=== PATIENT | male | born 1965 | race Caucasian/White ===

== ENCOUNTER → 2017-08-23 | Outpatient (CLI) | payer OTHER ==
[~2017-08-23] MED LIST: CEFDINIR300 MG PO; CEFTIN 250 MG250 MG GT; CELEBREX 200 M200 M1 PO; CELEBREX 200 M200 MG PO; LEVAQUIN 500 M500 M3 PO; LYRICA 50 MG50 MG PO; PRILOSEC 20 MG20 MG PO; RELAFEN750 MG PO; TRAMADOL 50 MG50 MG PO
== END ==
LOC: ULTRA 07:30
DX: K76.0 Fatty (change of) liver, not elsewhere classified (principal); R10.11 Right upper quadrant pain

== ENCOUNTER → 2017-12-31 | Outpatient (CLI) | payer OTHER | LOC: NUC 07:16 | DX: R10.11 Right upper quadrant pain (principal) ==

== ENCOUNTER 2019-09-07 13:28 | Inpatient (IN) | payer OTHER ==
[~2019-09-07] VITALS: Ht 180.3 cm; Wt 111.6 kg
[2019-09-07 13:35] VITALS: BP 133/85
[2019-09-07 14:08] LABS: ABSOLUTE NEUTROPHILS 4.2 thou/uL (1.4-8.2); BASOPHILS 0.3 % (0.0-2.0); HEMOGLOBIN 18.3 gm/dL (14.0-18.0); LYMPHOCYTES 26.7 % (24.0-44.0); MCHC 33.9 g/dL (28.0-37.0); MCV 91.5 fL (80.0-100.0); MONOCYTES 9.5 % (1.0-8.0); PLATELET COUNT 225 thou/uL (150-400); POLYS 62.5 % (36.0-66.0); RDW 13.2 % (10.5-14.5); WBC 6.7 thou/uL (4.0-11.0)
[2019-09-07 14:12] LABS: ANION GAP 7 mmol/L (7-16); BUN 17 mg/dL (7-18); CALCIUM 9.4 mg/dL (8.5-10.1); CHLORIDE 103 mmol/L (98-107); CO2 29 mmol/L (21-32); CREATININE 0.9 mg/dL (0.7-1.3); GLUCOSE 96 mg/dL (74-106); POTASSIUM 3.6 mmol/L (3.5-5.1); SODIUM 139 mmol/L (136-145)
[2019-09-07 14:23] LABS: MAGNESIUM 2.1 mg/dL (1.8-2.4); SGOT 20 U/L (15-37); SGPT 50 U/L (30-65); TOTAL BILIRUBIN 0.4 mg/dL (<0.1-1.0); TOTAL PROTEIN 7.4 g/dL (6.4-8.2); TROPONIN-I <0.06 ng/mL (<0.06)
[2019-09-07 16:24] VITALS: BP 131/84
[2019-09-07 16:35] VITALS: BP 132/96
--- NOTE | 2019-09-07 17:31 | NUR ---
ADMITTED PATIENT TO AT APPROX 1630. PATIENT ADMISSION COMPLETE, COMPLAINTS OF HEADACHE (RATED AT 4) AND DIZINESS. PATIENT REFUSED PAIN MEDICATION AND SAID SYMPTOMS WERE MOSTLY HIS DIZINESS. VITALS STABLE. ENT CONSULTATION CALLED IN. AWAITING ENT FOR FURTHER POC.
[2019-09-07] MEDS ORDERED: METHYLPREDNISOL32 MG PO (18:10)
[2019-09-07] MEDS ORDERED: AUGMENTIN 500-1 EACH PO (18:11)
[2019-09-07] MEDS ORDERED: MECLIZINE HCL25 M1 PO (18:14)
[2019-09-07] MEDS ORDERED: DIAZEPAM 10 MG10 M1 PO (18:16)
[2019-09-07 19:33] VITALS: BP 150/105
[2019-09-07 20:13] VITALS: BP 139/101
[2019-09-07 23:05] VITALS: BP 134/86
[2019-09-08 03:46] VITALS: BP 124/80
--- NOTE | 2019-09-08 04:06 | NUR ---
ASSUMED PT CARE AT 1900. PT A&0X4, VSS EXCEPT BP WHICH WAS SLIGHTLY ELEVATED AT 150/105. PT ALSO COMPLAINED ABOUT HEADACHE, DR BOLTON NOTIFIED OF HEADACHE AND OF ELEVATED BP. REGULAR STRENGHT TYLENOL AND 50MG OF METOPROLOL SUCCs Rx. MEDS ADMINISTERED AND BP CAME DOWN TO 124/80 THIS AM. PT IS STABLE, NO COPLAINTS OF N/V. PT RESTED WELL ALL NIGHT, GOOD URINE OUTPUT, WILL CONTINUE TO MONITOR PER POC.
--- NOTE | 2019-09-08 07:59 | EKG ---
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 : 1965 Requested By: Go Alexandre Order Number: [id number] MD: Shubham Gomez Measurements Intervals [place] Rate: 66 P: 28 FL: 180 QRS: 9 QRSD: 91 T: 16 QT: 375 QTc: 393 Interpretive Statements Sinus rhythm No significant abnormality Compared to ECG 04/29/2009 21:07:52 Atrial premature complex(es) no longer present Electronically Signed On 09-08-2019 7:59:25 CDT by Shubham Gomze [email or web address] <ELECTRONICALLY SIGNED> By: Shubham Gomez MD, [facility] 09/08/19 0759 33 33 Shubham Gomez MD, FAC /EPI
[2019-09-08 08:07] VITALS: BP 133/89
--- NOTE | 2019-09-08 10:27 | NUR ---
ASSESSMENT: CM REVIEWED CHART AND MET WITH PATIENT AT THE BEDSIDE. PT WAS ADMITTED FOR VERTIGO. PT REPORTS LIVING IN A HOUSE WITH HIS . PT REPORTS ONE STEP TO ENTER AND NO STEPS HE HAS TO USE ONCE INSIDE. PT REPORTS BEING FULLY INDEPENDENT WITH ADLS AND AMBULATION. PT DENIES HAVING ANY DME OR THE NEED FOR IT. PT HAS NOT HAD HH IN THE PAST NOR BEEN TO SNF. PT REPORTS HE WILL HAVE NO NEEDS FROM CM PRIOR TO DISCHARGE. CM WILL CONTINUE TO FOLLOW TO ASSIST NEEDED.
[2019-09-08 16:36] VITALS: BP 130/85
[2019-09-08] MEDS ORDERED: METOPROLOL SUCC50 MG PO (18:50)
[2019-09-08 19:33] VITALS: BP 130/85
--- NOTE | 2019-09-08 20:10 | NUR ---
RN receved order to D/C PT to home, pt's vs are stable , RN has giving d/c teaching ,including fall pervention, and medications, pt and family understand well , pt 's stays with pt , and she will cloth picker pt to go home soon.
== END 2019-09-08 21:30 | disposition home or self-care (01) | DRG 156 ==
LOC: ER 13:28 → 3W 15:56 → EROBS 15:56 → 3W 16:26
PROVIDERS: Emergency Medicine; ADMIT Family Medicine
DX: H93.3X9 Disorders of unspecified acoustic nerve (principal); Z90.49 Acquired absence of other specified parts of digestive tract; Z88.0 Allergy status to penicillin
CPT/HCPCS: 10879

== ENCOUNTER → 2020-02-09 | Outpatient (CLI) | payer OTHER ==
[~2020-02-09] MED LIST changes: +AUGMENTIN 500-1 EACH PO; +DIAZEPAM 10 MG10 M1 PO; +MECLIZINE HCL25 M1 PO; +METHYLPREDNISOL32 MG PO; +METOPROLOL SUCC50 MG PO
== END ==
LOC: ULTRA 07:36
DX: K76.0 Fatty (change of) liver, not elsewhere classified (principal)

== ENCOUNTER → 2020-11-05 | Outpatient (CLI) | payer OTHER ==
[~2020-11-05] VITALS: Ht 177.8 cm; Wt 111.1 kg
[2020-11-05 13:57] VITALS: BP 138/89
--- NOTE | 2020-11-06 12:34 | HPC ---
[facility] [address] [place] [address] PAIN MANAGEMENT CONSULTATION Name: ANILA HORN Room #: REG [facility]..#: [id number] Admission: 11/05/20 Attend Phys: Bora Anand DO Discharge: Date of : 69 Report #: [id number] THIS REPORT FOR: cc: Perry Aguilar MD, Neal A. MD Johnson, James E. DO ~ DATE OF SERVICE: 11/05/2020 CHIEF COMPLAINT: Neck pain. HISTORY OF PRESENT ILLNESS: As you know, the patient is a pleasant 55-year-old male who has been referred to our service by Neurosurgery to undergo bilateral C4-C5 intraarticular facet injections. The patient is being evaluated from a surgical standpoint and they wish to determine whether or not his symptoms are related to the C4-C5 level, which is just above his previous fusion. He was complaining of increasing neck pain and they referred the patient to our clinic to undergo this procedure to determine if his symptoms would improve. The patient reports today his pain is steady. He describes the pain as burning, shooting, and sharp. He places current pain score 7/10, daily average is 7/10, worst pain has been is 8/10. The patient states the pain is exacerbated with "just moving." Pain is improved with nothing to date. He has been referred to our service by his neurosurgery team to undergo bilateral C4-C5 intra-articular facet injections of the cervical spine. PAST MEDICAL HISTORY: 1. Bravo esophagus. 2. Gastroesophageal reflux disease. 3. History of vertigo. 4. History of lumbar radiculopathy. PAST SURGICAL HISTORY: 1. Lumbar laminectomy. 2. ACDF, 2009. 3. ACDF, 2012. SOCIAL HISTORY: The patient denies tobacco, IV or illicit drug use. Admits to approximately 1 alcohol beverage per day. He is retired, retired about 1 year ago. He reports he is not receiving workmen's compensation, but is receiving disability benefits. He is not in litigation in regards to pain. He is unaccompanied at today's visit. REVIEW OF SYSTEMS: Positive for wearing corrective eyewear, frequent and recurrent headaches, lightheadedness and dizziness, numbness and tingling sensations, chronic neck pain, fatigue and weakness. All other review of [address] [address] PAIN MANAGEMENT CONSULTATION Name: ANILA HORN ALAN Room #: REG [facility]..#: [id number] Admission: 11/05/20 Attend Phys: Bora Anand DO Discharge: Date of : 69 Report #: [id number] systems negative per 12-point review of systems other than those listed in history of present illness. Pain impact score 38/70, moderate interference of daily activities secondary to pain. ALLERGIES: PENICILLIN. CURRENT MEDICATIONS: Tramadol 50 mg every 6 hours p.r.n. pain, omeprazole 20 mg twice a day. IMAGING: No imaging available. PHYSICAL EXAMINATION: VITAL SIGNS: Blood pressure 138/89, pulse 79, respiratory rate 18 and unlabored. The patient is 97% on room air. Height 5 feet 10 inches tall, weight 245 pounds, BMI calculated 35.2. GENERAL: Well-developed, well-nourished, well-hydrated 55-year-old male appearing stated age. He is awake, alert and oriented x 3. Current pain score is rated at around 7-8/10. HEENT: Normocephalic, atraumatic. Pupils equal, round and reactive. NEUROLOGIC: Speech is fluent. The patient deemed a good historian. LUNGS: Clear, no wheeze, rhonchi or rales. CARDIOVASCULAR: Regular. No appreciable gallop, no rub. ABDOMEN: Soft, nontender. EXTREMITIES: Show no clubbing, no cyanosis, no edema. MUSCULOSKELETAL: Upper extremity strength appears equal and symmetrical 5/5. Deep tendon reflexes 2+/4, biceps, brachialis and triceps. Muscle bulk and tone equal and symmetrical in upper extremities. Spurling's test is negative. Cervical provocation testing is met with increasing pain with restriction of motion noted to be decreased by about 25%. There is palpatory tenderness over the paraspinal musculature of the cervical spine. No spinous process tenderness. ASSESSMENT: 1. Cervical spondylosis without current radiculopathy. 2. Chronic cervicalgia. 3. Chronic intractable pain. PLAN: 1. The patient has been referred to our service by his neurosurgery team to discuss the possibility of undergoing bilateral C4-C5 intraarticular facet injections. There is some question about whether or not the patient's symptoms are related to facet arthropathy at the level above his fusion or whether he is experiencing atypical cervical radiculopathy and may need a more extensive surgical approach. The patient was sent to our clinic to trial the bilateral [facility] [address] [place] [address] PAIN MANAGEMENT CONSULTATION Name: ANILA HORN Room #: REG [facility]#: [id number] Admission: 11/05/20 Attend Phys: Bora Anand, Discharge: Date of : 69 Report #: [id number] C4-C5 injections to determine first well whether or not his symptoms are improved and secondly whether or not we can see long-term benefit with injections in the area. The patient has trialled conservative treatment options undergoing physical therapy with mobility techniques. He has also undergone medication management, but has not noted much in the way of improvement in symptoms. He was subsequently referred to undergo the C4-C5 bilateral facet injections to determine if his symptoms will show improvement with that type of procedure. We have discussed this with the patient today. We also discussed with the patient, the other treatment options we have available including physical therapy, stretching exercises, traction techniques. We discussed suggestions of treatment with medication management. We also discussed the surgical options that may ultimately be necessary based on the efficacy of the injections provided. After this long discussion, the patient chose to move forward with the C4-C5 intraarticular facet injections. 2. The patient was made an appointment tomorrow, 11/06/2020 to undergo the bilateral facet injections. We will need to obtain a preauthorization for the patient to undergo the procedure as well as the patient needs to clear his schedule, so that he can go home and relax after the procedure. We were able to make an appointment tomorrow to undergo the injection in hopes of improving pain. 3. No medication changes made at today's visit. The patient will continue current medical therapy as prior prescribed. 4. We will see the patient back in followup visit to undergo bilateral C4-C5 intra-articular facet injections of the cervical spine to address questions proposed by Neurosurgery whether or not an improvement in symptoms will be noted with these type of procedures. We wish to thank nurse practitioner, Mariah Johansen, for the opportunity to see this patient in consultation. We will keep you apprised of his response to treatment as we address the requested C4-C5 intraarticular facet injections. We will keep you apprised of his response to this injection and any other treatments recommended. Again, we wish to thank you for the opportunity to see the patient in consultation. <ELECTRONICALLY SIGNED> By: Bora Anand DO 11/06/20 1234 1652 0025 Bora Anand DO /nt
== END ==
LOC: PAIN 06:52
PROVIDERS: ATTEND Anesthesiology Pain Medicine
DX: M47.816 Spondylosis without myelopathy or radiculopathy, lumbar region (principal); G89.4 Chronic pain syndrome; K22.70 Barrett's esophagus without dysplasia; K21.9 Gastro-esophageal reflux disease without esophagitis; Z79.891 Long term (current) use of opiate analgesic; Z79.899 Other long term (current) drug therapy; Z88.0 Allergy status to penicillin

== ENCOUNTER → 2020-11-06 | Outpatient (CLI) | payer OTHER ==
[~2020-11-06] VITALS: Ht 177.8 cm; Wt 111.1 kg
[2020-11-06 08:46] VITALS: BP 128/95
[2020-11-06 14:48] VITALS: BP 144/97
[2020-11-06 14:49] VITALS: BP 144/97
--- NOTE | 2020-11-06 15:30 | NUR ---
Pain Clinic Assessment: 1. History of Osteoarthritis: Left Upper Extremity Right Upper Extremity History of Rheumatoid Arthritis: Not Applicable 2. Height: 5 ft. 10 in. 177.8 cm. Weight: 245.0 lb. oz. 111.132 kg. Patient's BMI: 35.2 3. Vital Signs: BP: 144/97 Pulse: 84 Resp: 16 Temp: 02 Sat: 98 ECG Mon: 4. Pain Intensity: 7 5. Fall Risk: Dizziness: N Needs help standing or walking: N Fallen in the last 3 months: N Fall risk comments: 6. Patient on Blood Thinner: None 7. History of Hypertension: N 8. Opioid Therapy greater than 6 weeks: N Opiate Contract Signed: 9. Risk Assessment Tool Provided: LOW 10. Functional Assessment Tool: 11. Recreational Drug Use: Never Drug Type: Tobacco Use: Former Smoker Tobacco Type: Amount or Packs/day: How Many Years: Alcohol Use: Yes Frequency: Quant:
--- NOTE | 2020-11-07 07:29 | HPC ---
[address] [place] [address] PAIN MANAGEMENT CONSULTATION Name: ANILA HORN Room #: REG [facility].#: [id number] Admission: 11/06/20 Attend Phys: Bora Anand DO Discharge: Date of : 69 Report #: [id number] THIS REPORT FOR: cc: Perry Aguilar MD, Neal A. MD Johnson, James E. DO ~ DATE OF SERVICE: 11/06/2020 REFERRING PHYSICIAN: BRANDON Nicole CHIEF COMPLAINT: Neck pain. HISTORY OF PRESENT ILLNESS: As you know, the patient is a very pleasant 55-year-old male referred to our service by his neurosurgery team to undergo bilateral C4-C5 intraarticular facet injections under fluoroscopic guidance. The patient was seen in consultation yesterday 11/05/2020 to be assessed for the bilateral C4-C5 intraarticular facet injections. We were able to establish today's appointment for the patient to undergo bilateral C4-C5 intraarticular facet injections. We received authorization for the patient to undergo the procedure today. He returns in followup visit stating a pain level of about 7/10, exacerbated with extension, rotation, lateral flexion. He returns for bilateral C4-C5 intra-articular facet injections per the request of the Neurosurgery team. ALLERGIES: PENICILLIN. CURRENT MEDICATIONS: Tramadol, omeprazole. SOCIAL HISTORY: The patient denies tobacco, IV or illicit drug use. Admits to approximately 1 alcohol beverage per day. He is retired, retired about 1 year ago, unaccompanied at today's visit. IMAGING: No new imaging available. PQRS: The patient has known arthritic changes of the cervical spine, bilateral shoulders, bilateral elbows and wrists. No rheumatoid arthritis. He is placing current pain score 7/10. He is not a fall risk, has not had a fall in last 3 months. He is not on blood thinners, nor is he treated for hypertension. He is not on chronic opioids and has a low opiate addiction potential. Pain impact score is 38/70, moderate interference of daily activities secondary to pain. PHYSICAL EXAMINATION: VITAL SIGNS: Blood pressure 144/97, pulse 84, respiratory rate 16 and unlabored. The patient is 98% on room air. Height 5 feet 10 inches tall, weight 245 pounds, BMI calculated 35.2. [address] [address] PAIN MANAGEMENT CONSULTATION Name: ANILA HORN Room #: REG [facility]..#: [id number] Admission: 11/06/20 Attend Phys: Bora Anand DO Discharge: Date of : 69 Report #: [id number] GENERAL: Well-developed, well-nourished, well-hydrated 55-year-old male appearing stated age, placing current pain score 7/10. HEENT: Normocephalic, atraumatic. Pupils equal, round and reactive. Speech fluent. EXTREMITIES: Show no clubbing, no cyanosis. No appreciable edema. MUSCULOSKELETAL: Upper extremity strength equal and symmetrical 5/5. Deep tendon reflexes remain symmetrical, 2+/4, biceps, brachialis and triceps. Spurling's test is negative. Cervical provocation testing including extension, rotation, lateral flexion all intensify cervical pain. ASSESSMENT: 1. Cervical spondylosis without radiculopathy. 2. Chronic cervicalgia. 3. Chronic intractable pain. PLAN: 1. The patient returns today in followup visit having received authorization to undergo bilateral C4-C5 intraarticular facet injections under fluoroscopic guidance. We were able to obtain authorization quite quickly and able to have the patient come back today to undergo the procedure. He has been advised of the risks and benefits of a bilateral intraarticular facet injection in the cervical spine. These risks include but are not necessarily limited to bleeding, bruising, infection, worsening pain, no relief of pain, also risk of temporary or permanent muscle weakness, temporary or permanent nerve damage, possible paralysis, post-dural puncture headache and . The patient states understood and wished to proceed. 2. No medication changes made at today's visit. The patient will continue current medical therapy as prior prescribed. 3. We will see the patient back in followup visit on an as needed basis for possible next in the series of intra-articular cervical facet injections. PROCEDURE NOTE DESCRIPTION OF PROCEDURE: Bilateral C4-C5 intraarticular facet injections under fluoroscopic guidance. This is the first cervical facet joint injection the patient is undergoing. After obtaining written consent, the patient was taken back to the fluoroscopy suite. The patient was placed in a prone position with separate pillows under the chest and the forehead to decrease the cervical lordosis. The mouth was left free to move. The skin overlying the cervical area was prepped and draped in an aseptic fashion. The target locations on the right and left side of the C4-C5 facet joints were established. Using a 27-gauge, 1-1/2-inch needle, skin wheals were placed using [facility] [address] [place] [address] PAIN MANAGEMENT CONSULTATION Name: ANILA HORN [id number] Admission: 11/06/20 Attend Phys: Bora Anand DO Discharge: Date of : 69 Report #: [id number] 1 mL of 1% lidocaine over each target site. Two, 22-gauge 3-1/2 inch needle with bent tip was directed toward each of targeted facet joints ventrally until bone was contacted on the posterior aspect of the articular pillar just medial to its lateral border just inferior to the joint line at each target joint location. Touching bone initially assured that the needle was not placed too deeply. The needle was then directed superiorly, slipping into the facet joint in a ventral direction. An off lateral fluoroscopic image was obtained allowing final positioning into the posterior aspect of the joint. The needle could be seen entering the correct facet joint. After the joint space was entered and aspiration was negative for heme or CSF, 0.2 mL of Omnipaque was injected demonstrating a characteristic facet arthrogram. After negative aspiration for heme or CSF, 1.5 mL of a solution containing 1 mL 40 mg per mL, 40 mg total triamcinolone and 0.5 mL of bupivacaine 0.5% was slowly injected at the targeted facet joints. [place] were retracted pen[facility] and flushed with 0.5 mL 1% lidocaine. There were no apparent complications. The patient tolerated the procedure well and was carefully escorted to the recovery room in stable condition. The VAS before the procedure was 7/10 and after the procedure was 4/10. After meeting discharge criteria, the patient was discharged home. <ELECTRONICALLY SIGNED> By: Bora Anand DO 11/07/20 0729 1613 2040 Bora Anand DO /nt
== END | disposition home or self-care (01) ==
LOC: PAIN 06:58
PROVIDERS: ATTEND Anesthesiology Pain Medicine
DX: M47.812 Spondylosis without myelopathy or radiculopathy, cervical region (principal); M54.2 Cervicalgia; G89.29 Other chronic pain; M19.90 Unspecified osteoarthritis, unspecified site; Z98.890 Other specified postprocedural states; Z79.899 Other long term (current) drug therapy; Z88.0 Allergy status to penicillin

== ENCOUNTER → 2021-09-05 | Outpatient (CLI) | payer OTHER | LOC: CAT 08-26 14:36 | PROVIDERS: ATTEND Family Medicine | DX: J34.89 Other specified disorders of nose and nasal sinuses (principal); J34.3 Hypertrophy of nasal turbinates; G89.29 Other chronic pain ==